=== PATIENT | female | born 1985 | race Caucasian/White ===

== ENCOUNTER → 2017-12-25 19:57 | Outpatient (CLI) | payer BC ==
[~2017-12-25 19:57] MED LIST: PRENATAL GUMMY
[2017-12-25 20:26] LABS: APPEARANCE CLEAR (CLEAR); BILIRUBIN NEGATIVE (NEGATIVE); COLOR YELLOW (YELLOW); GLUCOSE NEGATIVE (NEGATIVE); KETONE NEGATIVE (NEGATIVE); NITRITE NEGATIVE (NEGATIVE); PROTEIN NEGATIVE (NEGATIVE); SPECIFIC GRAVITY 1.015 (1.005-1.020); UROBILINOGEN NORMAL (NORMAL)
== END | disposition home or self-care (01) ==
LOC: D.LDO 19:57
PROVIDERS: Obstetrics & Gynecology
DX: O26.892 Other specified pregnancy related conditions, second trimester (principal); Z3A.21 21 weeks gestation of pregnancy

== ENCOUNTER → 2018-01-29 18:40 | Outpatient (CLI) | payer BC ==
[~2018-01-29 18:40] MED LIST changes: +PERCOCET 5-3251 TAB PO; +ZOVIRAX200 MG PO
[2018-01-29 19:12] LABS: APPEARANCE CLEAR (CLEAR); BILIRUBIN NEGATIVE (NEGATIVE); COLOR YELLOW (YELLOW); GLUCOSE NEGATIVE (NEGATIVE); KETONE NEGATIVE (NEGATIVE); NITRITE NEGATIVE (NEGATIVE); PROTEIN NEGATIVE (NEGATIVE); UROBILINOGEN NORMAL (NORMAL)
[2018-01-29 19:13] LABS: BASOPHILS 0.2 % (0-2); EOSINOPHILS 0.8 % (0-7); HEMATOCRIT 31.4 % (36.0-48.0); HEMOGLOBIN 10.7 g/dL (12-16); IMMATURE GRANULOCYTES 0.2 % (0-5); MCH 29.9 pg (26.0-34.0); MCHC 34.1 g/dL (31.0-37.0); MCV 87.7 fL (80.0-100.0); MEAN PLATELET VOLUME 10.2 fL (7.4-10.4); MONOCYTES 9.2 % (2-11); NEUTROPHILS 62.6 % (40-80); PLATELET COUNT 140 10x3/uL (130-400); RBC 3.58 10x6/uL (4.00-5.40); RDW 12.8 % (11.5-14.5); WBC 6.6 10x3/uL (4.8-10.8)
[2018-01-29 19:28] LABS: ALBUMIN 2.8 g/dL (3.4-5.0); ALKALINE PHOSPHATASE 52 U/L (46-116); ALT (SGPT) 11 U/L (10-68); BILIRUBIN - DIRECT 0.14 mg/dL (0.00-0.30); BILIRUBIN - TOTAL 0.74 mg/dL (0.2-1.3); CALC OSMOLALITY 273 mosm/kg (275-300); CARBON DIOXIDE 24.3 mmol/L (21.0-32.0); CHLORIDE - SERUM 104 mmol/L (98-107); CREATININE - SERUM 0.5 mg/dL (0.6-1.3); GLUCOSE 83 mg/dL (74-106); POTASSIUM - SERUM 3.4 mmol/L (3.5-5.1); PROTEIN - SERUM 6.5 g/dL (6.4-8.2); SODIUM 138 mmol/L (136-145); UREA NITROGEN 10 mg/dL (7-18); eGFR NON AFRICAN AMERICAN > 90 mL/min (90-120)
[2018-03-24 10:08] VITALS: BMI 27.9
== END | disposition home or self-care (01) ==
LOC: D.LDO 18:40
PROVIDERS: Obstetrics & Gynecology
DX: O26.899 Other specified pregnancy related conditions, unspecified trimester (principal); Z3A.00 Weeks of gestation of pregnancy not specified; R51 Headache; H53.8 Other visual disturbances

== ENCOUNTER → 2018-03-11 10:59 | Outpatient (CLI) | payer BC ==
[2018-03-24 10:08] VITALS: BMI 27.9
== END | disposition home or self-care (01) ==
LOC: D.LDO 10:59
PROVIDERS: Obstetrics & Gynecology
DX: O62.9 Abnormality of forces of labor, unspecified (principal); Z3A.00 Weeks of gestation of pregnancy not specified

== ENCOUNTER → 2018-03-12 14:41 | Outpatient (CLI) | payer BC ==
[2018-03-24 10:08] VITALS: BMI 27.9
== END | disposition home or self-care (01) ==
LOC: D.LDO 14:41
DX: O36.8130 Decreased fetal movements, third trimester, not applicable or unspecified (principal); Z3A.32 32 weeks gestation of pregnancy

== ENCOUNTER 2018-03-23 02:14 | Inpatient (IN) | payer BC ==
[~2018-03-23] VITALS: Ht 154.9 cm; Wt 67.1 kg
[2018-03-23] VITALS (11 sets, daily range): BP systolic 107–129; BP diastolic 60–83; BMI 28.0
[~2018-03-23 02:14] MED LIST changes: -PERCOCET 5-3251 TAB PO; -ZOVIRAX200 MG PO
[2018-03-23] MEDS ORDERED: ZOVIRAX200 MG PO (02:52)
[2018-03-23 03:05] LABS: HEMATOCRIT 32.3 % (36.0-48.0); MCH 28.8 pg (26.0-34.0); MCHC 34.1 g/dL (31.0-37.0); MCV 84.6 fL (80.0-100.0); RBC 3.82 10x6/uL (4.00-5.40); RDW 12.9 % (11.5-14.5); WBC 7.4 10x3/uL (4.8-10.8)
[2018-03-23 05:20] LABS: APPEARANCE CLEAR (CLEAR); COLOR YELLOW (YELLOW); NITRITE NEGATIVE (NEGATIVE); SPECIFIC GRAVITY 1.025 (1.005-1.020)
[2018-03-23 05:21] LABS: BILIRUBIN NEGATIVE (NEGATIVE); GLUCOSE 50 mg/dL (NEGATIVE); KETONE NEGATIVE (NEGATIVE); PROTEIN TRACE mg/dL (NEGATIVE); UROBILINOGEN NORMAL (NORMAL)
[2018-03-23 05:23] LABS: BACTERIA FEW /hpf (NONE SEEN); EPITHELIAL CELLS 0-5 /hpf (0-5); MUCUS >1+ /lpf (NONE SEEN); RED CELLS - URINE NONE SEEN /hpf (0-5); WHITE CELLS - URINE 0-5 /hpf (0-5)
[2018-03-23 14:54] LABS: BASOPHILS 0 % (0-2); EOSINOPHILS 0 % (0-7); HEMATOCRIT 27.4 % (36.0-48.0); HEMOGLOBIN 9.2 g/dL (12-16); IMMATURE GRANULOCYTES 0.2 % (0-5); MCH 28.6 pg (26.0-34.0); MCHC 33.6 g/dL (31.0-37.0); MCV 85.1 fL (80.0-100.0); MEAN PLATELET VOLUME 10.9 fL (7.4-10.4); MONOCYTES 6.1 % (2-11); NEUTROPHILS 83.7 % (40-80); PLATELET COUNT 138 10x3/uL (130-400); RBC 3.22 10x6/uL (4.00-5.40); RDW 12.9 % (11.5-14.5)
[2018-03-23 14:55] LABS: WBC 9.5 10x3/uL (4.8-10.8)
[2018-03-24 07:32] LABS: RAPID PLASMA REAGIN Non Reactive (Non Reactive)
[2018-03-24 07:50] LABS: BASOPHILS 0 % (0-2); EOSINOPHILS 0.8 % (0-7); HEMATOCRIT 26.1 % (36.0-48.0); HEMOGLOBIN 8.7 g/dL (12-16); IMMATURE GRANULOCYTES 0.1 % (0-5); LYMPHOCYTES 17.7 % (15-50); MCH 28.5 pg (26.0-34.0); MCHC 33.3 g/dL (31.0-37.0); MCV 85.6 fL (80.0-100.0); MEAN PLATELET VOLUME 10.8 fL (7.4-10.4); NEUTROPHILS 73.4 % (40-80); PLATELET COUNT 139 10x3/uL (130-400); RBC 3.05 10x6/uL (4.00-5.40); RDW 13.1 % (11.5-14.5); WBC 7.2 10x3/uL (4.8-10.8)
[2018-03-24 08:45] VITALS: BP 124/78
[2018-03-24 10:08] VITALS: Ht 154.9 cm; Wt 67.1 kg
[2018-03-24 20:37] VITALS: BP 105/70
[2018-03-24 23:47] VITALS: BP 128/69
[2018-03-25 09:15] VITALS: BP 105/59
[2018-03-25] MEDS ORDERED: PERCOCET 5-3251 TAB PO (14:49)
== END 2018-03-25 16:55 | disposition home or self-care (01) | DRG 765 ==
LOC: D.LDO 02:14 → D.LD 02:14 → D.LDO 02:45 → D.LD 02:46
PROVIDERS: Obstetrics & Gynecology
PROC: 10D00Z1 Extraction of Products of Conception, Low, Open Approach (ICD-10-PCS; principal; 2018-03-23 03:30)
DX: O98.52 Other viral diseases complicating childbirth (principal); O60.14X0 Preterm labor third trimester with preterm delivery third trimester, not applicable or unspecified; Z3A.34 34 weeks gestation of pregnancy; Z37.0 Single live birth; Z87.891 Personal history of nicotine dependence

== ENCOUNTER → 2018-12-30 11:04 | Outpatient (CLI) | payer BC ==
[2018-03-24 10:08] VITALS: BMI 27.9
[~2018-12-30 11:04] MED LIST changes: +PERCOCET 5-3251 TAB PO; +ZOVIRAX200 MG PO
== END | disposition home or self-care (01) ==
LOC: D.MRI 11:04
PROVIDERS: ATTEND Orthopaedic Surgery
DX: S49.92XA Unspecified injury of left shoulder and upper arm, initial encounter (principal); X58.XXXA Exposure to other specified factors, initial encounter

== ENCOUNTER 2019-02-17 05:35 | Day surgery (SDC) | payer BC ==
[2019-02-16 14:07] LABS: HEMATOCRIT 34.1 % (36.0-48.0); HEMOGLOBIN 11.4 g/dL (12-16); MCHC 33.4 g/dL (31.0-37.0); MCV 80.6 fL (80.0-100.0); MEAN PLATELET VOLUME 10.7 fL (7.4-10.4); RBC 4.23 10x6/uL (4.00-5.40); WBC 4.9 10x3/uL (4.8-10.8)
[~2019-02-17] VITALS: Ht 154.9 cm; Wt 65.8 kg
[~2019-02-17 05:35] MED LIST changes: +VALTREX1000 MG PO
[2019-02-17 06:23] VITALS: BP 113/74; Ht 154.9 cm; Wt 65.8 kg
[2019-02-17 07:13] LABS: HCG URINE NEGATIVE (NEGATIVE)
[2019-02-17] MEDS ORDERED: HYDROCODON-ACE1 EA10 PO (08:39)
== END 2019-02-17 10:15 | disposition home or self-care (01) ==
LOC: D.OPS 05:35
PROVIDERS: Anesthesiology; ATTEND Orthopaedic Surgery
DX: M25.812 Other specified joint disorders, left shoulder (principal)

== ENCOUNTER 2019-12-28 19:35 | Emergency (ER) | payer BC ==
[~2019-12-28] VITALS: Ht 154.9 cm; Wt 63.6 kg
[~2019-12-28 19:35] MED LIST changes: +HYDROCODON-ACE1 EA10 PO
[2019-12-28 19:40] VITALS: BP 132/90; Ht 154.9 cm; Wt 63.6 kg
== END 2019-12-28 20:43 | disposition home or self-care (01) ==
LOC: D.ER 19:35
DX: R10.9 Unspecified abdominal pain (principal); R31.9 Hematuria, unspecified